=== PATIENT | male | born 1980 | race Two or more races ===

== ENCOUNTER 2018-05-09 11:35 | Day surgery (SDC) | payer MEDICARE, MEDICAID ==
[2018-05-09] MEDS ORDERED: LIDOCAINE 2% INJ 100 MG/5 ML SDV (FOR ANES.) As Ordered (13:16)
[2018-05-09] MEDS ORDERED: fentaNYL 100 MCG/2 ML INJECTION (J3010) As Ordered (13:17)
[2018-05-09] MEDS ORDERED: PROPOFOL 200 MG/20 ML VIAL As Ordered (13:18)
== END 2018-05-09 14:10 | disposition home or self-care (01) ==
LOC: M OPP 11:35
DX: K22.8 Other specified diseases of esophagus (principal); K44.9 Diaphragmatic hernia without obstruction or gangrene; R12 Heartburn; E73.9 Lactose intolerance, unspecified; F20.9 Schizophrenia, unspecified; K21.9 Gastro-esophageal reflux disease without esophagitis; E78.00 Pure hypercholesterolemia, unspecified; E03.9 Hypothyroidism, unspecified; J38.5 Laryngeal spasm; G40.89 Other seizures; Z87.891 Personal history of nicotine dependence
CPT/HCPCS: 43239